=== PATIENT | male | born 1945 | race Caucasian/White ===

== ENCOUNTER → 2016-04-03 | Outpatient (CLI) | payer BC ==
[~2016-04-03] MED LIST: AMLO-110 PO; ASPI81TA28 PO; HYDR-5688 PO
[2016-04-03 17:14] LABS: ALT/SGPT 40 U/L (12-78); AST/SGOT 25 U/L (15-37); BLOOD UREA NITROGEN 30 mg/dl (7-18); BUN/CREATININE RATIO 23.3 (10-20); CALCIUM 8.9 mg/dl (8.5-10.1); CARBON DIOXIDE 26 mmol/L (21-32); CHLORIDE 108 mmol/L (98-107); GLUCOSE 75 mg/dl (70-99); POTASSIUM 3.9 mmol/L (3.5-5.1); SODIUM 143 mmol/L (136-145)
[2016-04-03 17:17] LABS: ALKALINE PHOSPHATASE 74 U/L (45-117); CHOLESTEROL 197 mg/dl (0-200); CHOLESTEROL/HDL RATIO 2.8; HDL CHOLESTEROL 70 mg/dl; LDL CHOLESTEROL CALCULATED 112 mg/dl; TRIGLYCERIDES 73 mg/dl (0-150); VERY LOW DENSITY LIPOPROT CALC 15 mg/dl
--- NOTE | 2016-04-09 06:37 | CODING QUERY NO DIAGNOSIS ---
TREATMENT RENDERED WITHOUT A DIAGNOSIS Dr. Beasley, To promote full compliance with coding requirements relating to patient care, physician participation is requested in all cases of dry goods inspector uncertainty. Please assist us with providing a diagnosis/symptom for the test(s) below: A diagnosis/symptom was not documented on your Order. A valid diagnosis/symptom is required to bill all insurances. Please remember that we are unable to code a diagnosis of rule out, probable, possible, questionable, or suspected. Tests that require a diagnosis: * CMP DIAGNOSIS: * LIPID PANEL DIAGNOSIS: * HEPATITIS C, IGG DIAGNOSIS: DATE OF SERVICE: 04/03/16 Provider Signature: Date: Thank you Brody Meza [facility] Information Management Once completed, please kindly fax back to [phone] For questions please call [phone]
== END | disposition home or self-care (01) ==
LOC: C.LAB 14:34
PROVIDERS: ATTEND Family Medicine
DX: Z13.220 Encounter for screening for lipoid disorders (principal); Z11.59 Encounter for screening for other viral diseases; I10 Essential (primary) hypertension

== ENCOUNTER 2016-05-01 08:53 | Day surgery (SDC) | payer BC, OTHER ==
[2016-04-03 13:47] VITALS: BMI 25.0
--- NOTE | 2016-04-03 14:20 | PAT Medication Instructions ---
Service Date Apr 03, 2016. Current Home Medication List Amlodipine (Norvasc), 5 MG PO QAM Aspirin (Aspirin Ec), 81 MG PO QAM Medication Instructions For Your Scheduled Surgery - Hold the following medications per surgeon's instructions: Aspirin (Aspirin Ec), 81 MG PO QAM - Take the following medications the morning of surgery with a sip of water OTHERWISE NOTHING TO EAT OR DRINK AFTER MIDNIGHT: Amlodipine (Norvasc), 5 MG PO QAM If you have any questions please call us at [phone] (Mimi Adams PA-C ) or [phone] or [phone]
[2016-04-03 15:29] LABS: BASO % 0.3 %; BASO ABS # 0.03 K/uL (0-0.2); COMPLETE YES; HEMATOCRIT 41.1 % (42-52); IG% 0.2 %; LYMPH % 13.1 %; LYMPH ABS # 1.22 K/uL (1.2-3.4); MEAN CELL VOLUME 83.5 fL (80-100); MEAN CORPUSCULAR HEMOGLOBIN 29.1 pg (25-34); MEAN CORPUSCULAR HGB CONC 34.8 g/dl (32-36); MEAN PLATELET VOLUME 9.6 fL (7.4-10.4); MONO % 5.7 %; NEUT % 79.7 %; PLATELET COUNT 210 K/uL (130-400); RED BLOOD COUNT 4.92 M/uL (4.7-6.1); WHITE BLOOD COUNT 9.28 K/uL (4.8-10.8)
[2016-04-03 15:39] LABS: PARTIAL THROMBOPLASTIN RATIO 1.1; PROTHROMBIN TIME (PATIENT) 11.2 SECONDS (9.0-12.0)
[2016-04-03 18:50] LABS: BUN/CREATININE RATIO 23.3 (10-20); CALCIUM 8.9 mg/dl (8.5-10.1); CREATININE 1.3 mg/dl (0.60-1.40); POTASSIUM 3.9 mmol/L (3.5-5.1)
[~2016-05-01] VITALS: Ht 165.1 cm; Wt 69.4 kg
[~2016-05-01 08:53] MED LIST changes: +BUPIVACAINE/EPINEPHRINE 0.5% MPF 1:200,000 30 ML VIAL ONE; +CEFAZOLIN 2000 MG/60 ML D5W IV SCH; +HEPARIN SOD 5000 UNIT/0.5 ML CARP SQ SCH; +HEPARIN SQ 5000 UNIT HEART ALERT CARP IV SCH; -HYDR-5688 PO; +LACTATED RINGER'S 1000ML 1,000 ML IV SCH
[2016-05-01] MEDS ORDERED: MIDAZOLAM HCL 1 MG/ML 2ML VIAL ONE (08:59)
[2016-05-01] MEDS ORDERED: PROPOFOL IV EMULSION 10 MG/ML 20 ML VIAL IV ONE (08:59)
[2016-05-01] MEDS ORDERED: FENTANYL CITRATE INJ 50 MCG/1 ML 2 ML VIAL ONE (08:59)
[2016-05-01] MEDS ORDERED: DEXAMETHASONE SOD INJ 4 MG/ML VIAL ONE (08:59)
[2016-05-01] MEDS ORDERED: LIDOCAINE HCL 2% 2 ML VIAL (20MG/ML) ONE (08:59)
[2016-05-01] MEDS ORDERED: ONDANSETRON INJ 2 MG/ML 2 ML VIAL ONE (08:59)
[2016-05-01] MEDS ORDERED: ROCURONIUM BROMIDE 10 MG/ML 5 ML VIAL ONE (09:09)
[2016-05-01 09:27] VITALS: BP 159/95; PULSE 71; TEMP 36.5; O2SAT 95; Ht 165.1 cm; Wt 69.4 kg
[2016-05-01] MEDS ORDERED: LACTATED RINGER'S 1000ML 1,000 ML IV PRN (09:53)
[2016-05-01] MEDS ORDERED: ONDANSETRON INJ 2 MG/ML 2 ML VIAL IV PRN ×2 (10:00→12:15)
--- NOTE | 2016-05-01 10:04 | History and Physical ---
History & Physical Date May 01, 2016. Chief Complaint left groin pain/bulge History of Present Illness The patient is a 70 year old male with complaints of left groin bulge/pain. Additional History Hepatic Disease: No Endocrine Disorder: No Kidney Disease: No Hypertension: Yes Heart Disease: No Bleeding Tendencies: No Infectious Diseases: No Allergies Coded Allergies: No Known Allergies (Unverified , 05/01/16) Home Medications Scheduled Amlodipine (Norvasc), 5 MG PO QAM Aspirin (Aspirin Ec), 81 MG PO QAM Physical Examination Skin: warm/dry Eyes: normal inspection, EOMI Head: normocephalic Neck: supple, no adenopathy Respiratory/Chest: lungs clear, normal breath sounds Cardiovascular: regular rate, rhythm, no edema Abdomen / GI: + pertinent finding (ubilical hernia. large LIH. nonreducible. ) Extremities: normal inspection Plan of Treatment discussed options. he has changed his mind and now wants both the umbilical and inguinal hernias repaired. we discussed risks. all questions answered. ok to proceed with open repair of LIH with mesh; open repair of umbilical hernia / possible mesh.
[2016-05-01] MEDS ORDERED: HYDR-5688 PO (10:11)
--- NOTE | 2016-05-01 10:13 | Discharge Instructions ---
Discharge Instructions Admission Reason for Admission: Left Inguinal Hernia, Umbilical Hernia Discharge Discharge Diagnosis / Problem: inguinal hernia;umbilical hernia Discharge Goals Goal(s): Decrease discomfort, Improve function Activity Recommendations Activity Limitations: as noted below Lifting Limitations: no more than 10 pounds Exercise/Sports Limitations: until after follow-up appointment May Resume Sexual Activity: after follow-up appointment Shower/Bathe: tomorrow . Instructions / Follow-Up Instructions / Follow-Up follow up with Dr. Arciniega within 1-2 weeks. Current Hospital Diet Patient's current hospital diet: Discharge Diet Recommended Diet: Regular Diet Pending Studies Studies pending at discharge: no Laboratory Results Lipid Panel Test 04/03/16 14:32 Range/Units Triglycerides Level 73 0-150 mg/dl Cholesterol Level 197 0-200 mg/dl HDL Cholesterol 70 mg/dl Cholesterol/HDL Ratio 2.8 LDL Cholesterol, Calculated 112 mg/dl Medical Emergencies . Who to Call and When: Medical Emergencies: If at any time you feel your situation is an emergency, please call 911 immediately. . Non-Emergent Contact Non-Emergency issues call your: Primary Care Provider, Surgeon Call Non-Emergent contact if: temperature is above 101, wound has increased drainage, wound has increased redness, wound has increased pain . "Provider Documentation" section prepared by Javier Arciniega. VTE Core Measure Inpt VTE Proph given/why not?: Unfractionated heparin SQ, SCD's
[2016-05-01] MEDS ORDERED: KETOROLAC TROMETHAMINE 30 MG/ML VIAL ONE (10:49)
[2016-05-01] MEDS: FENTANYL CITRATE INJ 50 MCG/1 ML 2 ML VIAL IV PRN ×3 (12:09→12:19)
[2016-05-01] MEDS ORDERED: LACTATED RINGER'S 1000ML 1,000 ML IV SCH (12:10)
--- NOTE | 2016-05-01 12:12 | [facility] Operative Report ---
Operative Report Operative Date May 01, 2016. Pre-Operative Diagnosis Left inguinal and umbilical hernia Post-Operative Diagnosis umbilical hernia; large incarcerated LIH Procedure(s) Performed 1. umbilical hernia repair 2. open repair of left inguinal hernia with plug/patch mesh Surgeon Dr Arciniega Finish Off Operator Surgeon(s) Mireya Marquez PA-C Estimated Blood Loss 15ml Findings large inguinal hernia with sigmoid colon incarceration small umbilical hernia Specimens no specimen per surgeon Anesthesia general with LMA Disposition Recovery Room / PACU I attest to the content of the Intraoperative Record and any orders documented therein. Any exceptions are noted below.
[2016-05-01] MEDS ORDERED: MoRPHine SULFATE 4 MG/ML 1 ML CARP\\VIAL IV PRN (12:15)
[2016-05-01] MEDS ORDERED: HYDROCODONE/ACETAMOPHEN 5/325MG TAB PO PRN ×2 (12:15)
--- NOTE | 2016-05-01 12:37 | Anesthesiology Progress Note ---
Anesthesia Post Op Note Date & Time May 01, 2016 at 12:37 Vital Signs Pain Intensity: 3 Vital Signs Past 12 Hours Date Time Temp Pulse Resp B/P Pulse Ox O2 Delivery O2 Flow Rate FiO2 05/01/16 12:25 69 16 155/95 98 Nasal Cannula 2 05/01/16 12:15 79 16 155/90 98 Nasal Cannula 2 05/01/16 12:05 66 16 134/94 99 Nasal Cannula 2 05/01/16 11:58 36.7 79 16 148/89 98 Nasal Cannula 2 05/01/16 09:27 36.5 71 18 159/95 95 Room Air Notes Mental Status: alert / awake / arousable, participated in evaluation Pt Amnestic to Procedure: Yes Nausea / Vomiting: adequately controlled Pain: adequately controlled Airway Patency, RR, SpO2: stable & adequate BP & HR: stable & adequate Hydration State: stable & adequate Anesthetic Complications: no major complications apparent
[2016-05-01 12:55] VITALS: BP 166/93; PULSE 75; TEMP 36.8; O2SAT 94
[2016-05-01 13:18] VITALS: BP 148/90; PULSE 77; O2SAT 94
[2016-05-01 14:01] VITALS: BP 137/84; PULSE 76; TEMP 36.6; O2SAT 94
--- NOTE | 2016-05-01 14:55 | OPERATIVE REPORT ---
DATE OF OPERATION: 05/01/2016 PREOPERATIVE DIAGNOSES: 1. Incarcerated left inguinal hernia. 2. Umbilical hernia. POSTOPERATIVE DIAGNOSES: 1. Left inguinal hernia with sigmoid colon incarceration. 2. Small umbilical hernia. PROCEDURE: 1. Open left inguinal hernia repair with plug and patch mesh. 2. Open umbilical hernia repair without mesh. SURGEON: Dr. Arciniega. SHIP PURSER: Mireya Brink PA-C. ESTIMATED BLOOD LOSS: Approximately 20 mL. COMPLICATIONS: No immediate. ANESTHESIA: General with laryngeal mask airway. OPERATIVE NOTE: After informed consent was obtained, the patient was taken to the operating suite, placed in the supine position. After successful intubation, a Porras catheter was placed. The umbilical and groin area were shaved and sterilely prepped and draped in usual fashion. I began with the umbilical hernia. I made a supraumbilical curvilinear incision with 15 blade scalpel and carried down through the soft tissue using electrocautery. We carried it down to the fascia where we were able to palpate a small less than 1 cm hernia with fat protruding through it. We were able to free up the incarcerated fat down to its neck and then amputated and dunk the stalk back into the abdominal cavity. I then used a #1 Ethibond to close the small defect in a single [id number] stitch. In order to close this hernia, I did not have to take down the umbilical stalk. After the hernia was closed, I irrigated the wound and closed in 2 layers using 2-0 Vicryl and 4-0 Monocryl. Some Marcaine was injected around them for postoperative analgesia and skin glue used as dressing. Our attention then turned to left groin. I made an inguinal incision with a new #15 blade scalpel. We carried this down through the soft tissue using electrocautery. The external oblique aponeurosis was skeletonized and opened with a new fresh blade. It was extended distally through the external ring using Metzenbaum scissors as well as for several centimeters proximally. Once in the canal, there was a very large indirect incarcerated sac. I was able to bluntly take my finger and pull the cord and cord structures off the pubic bone and place a Christos around it. We then began by slowly inspecting the cord and cord structures. There was a very large sac. We decided to open it to inspect its contents. There was some omentum as well as probably 8 inches of sigmoid colon incarcerated within it. We opened up the sac completely and divided it and discarded it. The colon itself looked healthy and viable. We were able to free it in the rest of the sac from the cord and cord structures and dunk it get back down into the abdominal cavity. There was no evidence of a direct hernia. Because of the large size of the defect and the help to keep it reduced, we used the plug and patch technique. We placed a plug of polypropylene mesh into the defect and secured to its surrounding musculature using 0 Ethibond. Once this was completed, we then got a piece of polypropylene mesh, it was a prekeyhole mesh and placed it into the inguinal canal. It was sutured distally to Yony's ligament laterally along the shelving portion of Poupart's ligament and medially along the midline musculature. The "arms" of the mesh were wrapped around behind the cord and cord structures and secured to underlying muscle. At the end of the procedure, the mesh laid tension free without impinging on the cord itself. There was adequate hemostasis. We thoroughly irrigated the wound. I injected some Marcaine around the edges of the mesh for postoperative analgesia. We then closed the external oblique aponeurosis with 2-0 Vicryl in a running fashion. Soft tissue was irrigated and closed with 3-0 Vicryl and 4-0 Monocryl. Some additional Marcaine was injected around the incision. Dermabond glue was used as a dressing. The patient was awakened, extubated, and transferred to recovery in stable condition. I attest to the content of the Intraoperative Record and any orders documented therein. Any exceptions are noted below. [id number]
== END 2016-05-01 13:55 | disposition home or self-care (01) ==
LOC: C.ACU 08:53
PROVIDERS: ATTEND Surgery
DX: K40.30 Unilateral inguinal hernia, with obstruction, without gangrene, not specified as recurrent (principal); K42.9 Umbilical hernia without obstruction or gangrene

== ENCOUNTER → 2017-02-11 | Outpatient (CLI) | payer OTHER ==
[~2017-02-11] MED LIST changes: -BUPIVACAINE/EPINEPHRINE 0.5% MPF 1:200,000 30 ML VIAL ONE; -CEFAZOLIN 2000 MG/60 ML D5W IV SCH; -HEPARIN SOD 5000 UNIT/0.5 ML CARP SQ SCH; -HEPARIN SQ 5000 UNIT HEART ALERT CARP IV SCH; -LACTATED RINGER'S 1000ML 1,000 ML IV SCH
== END | disposition home or self-care (01) ==
LOC: C.LAB1850 13:23
PROVIDERS: ATTEND Internal Medicine
DX: Z91.89 Other specified personal risk factors, not elsewhere classified (principal)

== ENCOUNTER → 2017-06-17 | Outpatient (CLI) | payer OTHER ==
[2017-06-17 11:15] LABS: HEMATOCRIT 46.6 % (42-52); HEMOGLOBIN 15.9 g/dL (14.0-18.0); MEAN CORPUSCULAR HEMOGLOBIN 29.3 pg (25-34); MEAN CORPUSCULAR HGB CONC 34.1 g/dl (32-36); MEAN PLATELET VOLUME 9.7 fL (7.4-10.4); PLATELET COUNT 234 K/uL (130-400); RED CELL DISTRIBUTION WIDTH SD 43.3 fL (36.4-46.3); WHITE BLOOD COUNT 6.44 K/uL (4.8-10.8)
[2017-06-17 11:37] LABS: ALBUMIN 3.6 gm/dl (3.4-5.0); ALT/SGPT 45 U/L (12-78); AST/SGOT 30 U/L (15-37); BLOOD UREA NITROGEN 24 mg/dl (7-18); CALCIUM 9.3 mg/dl (8.5-10.1); CARBON DIOXIDE 26 mmol/L (21-32); CREATININE 1.23 mg/dl (0.60-1.40); GLUCOSE 89 mg/dl (70-99); SODIUM 139 mmol/L (136-145)
[2017-06-17 11:39] LABS: ALKALINE PHOSPHATASE 84 U/L (45-117); CHOLESTEROL 200 mg/dl (0-200); LDL CHOLESTEROL CALCULATED 128 mg/dl; TOTAL PROTEIN 7.4 gm/dl (6.4-8.2)
== END | disposition home or self-care (01) ==
LOC: C.LABBC 08:52
PROVIDERS: ATTEND Family Medicine
DX: I10 Essential (primary) hypertension (principal)